=== PATIENT | male | born 1955 | race Caucasian/White ===

== ENCOUNTER 2022-06-20 15:56 | Emergency (ER) | payer OTHER, SELFPAY ==
[2022-06-20] VITALS (32 sets, daily range): BP systolic 120–156; BP diastolic 61–119; PULSE 79–108; RESP 13–26; TEMP 36.7; O2SAT 95–100
--- NOTE | ~2022-06-20 | XR_ITS ---
EXAMINATION: XR chest 2V DATE: 06/20/2022 16:50 INDICATION: Weakness TECHNIQUE: PA and lateral views of the chest are obtained. COMPARISON: 06/04/2019 FINDINGS: There are nodular opacities at the left costophrenic angle on the frontal view. No pleural effusion or pneumothorax. The cardiomediastinal silhouette is normal. There is moderate thoracic spon dylosis. There is chronic mild calcification of the pericardium. IMPRESSION: 1. Nodules projecting at the left costophrenic angle. Further evaluation with CT of the chest is phoebe mmended. Reviewed, dictated and finalized at location A. IMPRESSION: 1. Nodules projecting at the left costophrenic angle. Further evaluation with C T of the chest is recommended.
--- NOTE | ~2022-06-20 | CT_ITS ---
EXAMINATION: CTA chest PE protocol DATE: 06/20/2022 18:05 INDICATION: Hemoptysis. Nodule seen on prior radiograph. TECHNIQUE: Computed tomography (CT) pulmonary angiogram of the chest was performed with 100 mL Omnipa que-350 intravenous contrast. Additional 3D reconstructions utilizing coronal maximum intensity proje ction (MIP) were performed. Automated exposure control and iterative reconstruction technique were em ployed. The dose-length product was 408.61 mGy-cm. COMPARISON: None FINDINGS: Excellent contrast opacification of the pulmonary arteries. There is mild streak artifact from dense contrast in the superior vena cava and right atrium. Mild scattered respiratory motion artifact. Over all this does not significantly limit evaluation. No pulmonary embolism. There is diffuse bronchial w all thickening with some scattered bubbly appearing mucous within the bronchi. There are scattered bi lateral patchy groundglass opacities with peripheral and lower lung predominance which in the acute s etting are suspicious for pneumonia. There does however appear to be some associated honeycombing at the lung bases and differential would include usual interstitial pneumonia (UIP) pattern chronic inte rstitial lung disease. Alternatively the cystic change to this could be related to emphysema. No pleu ral effusion or pneumothorax. Heart size is normal. Extensive pericardial calcification without effus ion consistent with chronic pericarditis. Thoracic aorta is normal in caliber with no dissection. No pathologically enlarged thoracic lymphadenopathy. Visualized upper abdomen is unremarkable. Mild thor acic spondylosis with bridging osteophytes at multiple levels consistent with diffuse idiopathic skel etal hyperostosis (DISH). IMPRESSION: 1. No pulmonary embolism. 2. Bronchial wall thickening with scattered patchy groundglass opacities which could be related to ac alanna pneumonia superimposed over emphysema or UIP pattern chronic interstitial lung disease. Reviewed, dictated and finalized at location A. IMPRESSION: 1. No pulmonary embolism. 2. Bronchial wall thickening with scattered patchy groundglass opacities which could be related to acute pneumonia superimposed over emphysema or UIP pattern chronic interstitial lung disease.
--- NOTE | 2022-06-20 16:24 | ECG_ITS ---
Measurements Intervals Watson Rate: 101 P: 79 AR: 204 QRS: -68 QRSD: 89 T: 85 QT: 315 QTc: 409 Interpretive Statements SINUS TACHYCARDIA VENTRICULAR PREMATURE COMPLEX BORDERLINE AV CONDUCTION DELAY INCOMPLETE RIGHT BUNDLE BRANCH BLOCK LEFT ANTERIOR FASCICULAR BLOCK BORDERLINE ST-T WAVE ABNORMALITY- HIGH LATERAL ELADS BASELINE ARTIFACT- I, V3, V5-V6 ABNORMAL ECG NO PREVIOUS ECG AVAILABLE FOR COMPARISON Electronically Signed On 06-20-2022 16:51:27 CDT by Chucky Gardiner D.O.
[2022-06-20 16:32] LABS: Glucose Point of Care > 500 mg/dl (65-105)
--- NOTE | 2022-06-20 16:57 | ED.GENADULT ---
HPI - General Adult General Chief complaint: Unspecified <BHASKAR Doshi Last Filed: 06/21/22 00:08> Stated complaint: coughing up blood for 10 days <BHASKAR Doshi Last Filed: 06/21/22 00:08> Time Seen by Provider: 06/20/22 16:56 <BHASKAR Doshi Last Filed: 06/21/22 00:08> Source: patient <BHASKAR Doshi Last Filed: 06/21/22 00:08> Mode of arrival: ambulatory <BHASKAR Doshi Last Filed: 06/21/22 00:08> Limitations: no limitations <BHASKAR Doshi Last Filed: 06/21/22 00:08> History of Present Illness HPI narrative: Patient is a 67 y/o male who presents to the ED with multiple complaints. Patient is currently homeless. He reports having a recent cough, started on Doxycycline and prednisone by his PCP 10 days ago. States the cough is improved, but he is now experiencing some hemoptysis over the last 10 days. Intermittent, mild in amount, more streaking after coughing episode. Former smoker. Denies any significant shortness of breath, or chest pain, fevers, congestion, runny nose. Also reports his blood sugars have been out of control for the last several years. He is supposed to be on metformin, but has been out of this for the last week as he lost his medication. He does note polyuria and polydipsia. He does not have a way to check his sugars. Patient further reports having diffuse back, hip, knee pain. Denies any abdominal pain, nausea, vomiting, headache, dizziness, vision changes. <BHASKAR Doshi Last Filed: 06/21/22 00:08> Related Data Allergies/adverse reactions: Allergies Allergy/AdvReac Type Severity Reaction Status Date / Time No Known Allergies Allergy Verified 09/23/16 15:47 <BHASKAR Doshi Last Filed: 06/21/22 00:08> Review of Systems Review of Systems: CONSTITUTIONAL: Denies fever, chills, or sweats. EYES: Denies vision changes ENT: Reports polydipsia. Denies rhinorrhea, congestion, sore throat. CARDIOVASCULAR: Denies chest pain. RESPIRATORY: Reports cough, hemoptysis. Denies dyspnea. GASTROINTESTINAL: Denies abdominal pain, nausea, vomiting, or diarrhea. GENITOURINARY: Reports polyuria. MUSCULOSKELETAL: Reports diffuse back pain, hip pain, knee pain. NEUROLOGIC: Denies headache, numbness, or weakness. <Iva Lowery PA-C - Last Filed: 06/21/22 00:08> All systems reviewed & are unremarkable except as noted in HPI and below <Iva Lowery PA-C - Last Filed: 06/21/22 00:08> [facility] Past Medical History Medical History: Medical History (Updated 06/21/22 @ 00:00 by Zaid Cotton) COPD (chronic obstructive pulmonary disease) Diabetes mellitus <Iva Lowery PA-C - Last Filed: 06/21/22 00:08> Surgical History Surgical History: Surgical History (Updated 06/20/22 @ 18:27 by Iva Lowery PA-C) History of ankle surgery History of appendectomy History of eye surgery <Iva Lowery PA-C - Last Filed: 06/21/22 00:08> Social History Social History: Social History (Updated 06/20/22 @ 18:27 by Iva Lowery PA-C) Smoking status: Former smoker <Iva Lowery PA-C - Last Filed: 06/21/22 00:08> Exam Narrative: GENERAL: Mildly disheveled appearing, well-nourished, non-toxic, in no acute distress. HEAD: Normocephalic, atraumatic. EYES: PERRL/EOMI, conjunctivae clear bilaterally. NECK: Supple. No adenopathy, no masses. RESPIRATORY: Airway patent, respirations nonlabored. Coarse breath sounds bilaterally with rhonchi and occasional wheezing. CARDIOVASCULAR: Regular rate and rhythm without murmurs, rubs, or gallops. Peripheral pulses 2+ and equal bilaterally. ABDOMINAL: Soft, nontender, nondistended, no hepatosplenomegaly. Normoactive BS. MUSCULOSKELETAL: Moves all extremities. Strength/ROM intact without gross deformities. SKIN: Warm, dry, normal color. No rashes. NEURO: A&O X3.
[2022-06-20 17:13] LABS: Basophils Percent Auto 0.2 % (0.2-1.2); Eosinophils Absolute Auto 0.1 K/mm3 (0-0.3); Eosinophils Percent Auto 1.3 % (0-4.4); Hematocrit 41.5 % (42.0-52.0); Immature Granulocyte Absolute 0.05 K/mm3 (0.00-0.031); Immature Granulocyte Percent A 0.5 % (0-0.5); Lymphocytes Percent Auto 16.7 % (18.3-44.2); Mean Corpuscular HGB Conc 33.7 g/dl (32-36); Mean Corpuscular Hemoglobin 31.1 pg (26-34); Mean Corpuscular Volume 92.2 fl (80-100); Mean Platelet Volume 9.6 fl (7.4-10.4); Monocytes Absolute Auto 0.8 K/mm3 (0.1-0.6); Monocytes Percent Auto 7.9 % (2.6-8.5); Neutrophils Percent Auto 73.4 % (45.5-73.1); Platelet Count Result 351 k/mm3 (150-375); Red Cell Distribution Width 12.7 % (11.5-14.5); White Blood Count 9.6 K/mm3 (4.5-10.0)
[2022-06-20 17:19] LABS: Alanine Aminotransferase 43 U/L (6-50); Albumin Level 3.9 g/dL (3.5-5.1); Alkaline Phosphatase 117 U/L (38-126); Anion Gap 16 mmol/L (8-16); Aspartate Amino Transferase 28 U/L (17-59); Bilirubin,Total 0.4 mg/dL (0.2-1.3); Blood Urea Nitrogen 19 mg/dL (9-20); Calcium 8.5 mg/dL (8.4-10.2); Carbon Dioxide 20 mmol/L (22-30); Chloride 91 mmol/L (98-107); Estimated CRCL calculation 68 ml/min; Estimated Glomerular Filt Rate > 60; Glucose 722 mg/dL (65-110); Potassium 4.5 mmol/L (3.4-5.0); Sodium 127 mmol/L (137-145)
[2022-06-20] MEDS: SODIUM CHLORIDE 0.9% IV 1,000 ML 999 ML IV CONT ×2 (17:33→18:52)
[2022-06-20 17:34] LABS: Appearance Urine Clear (Clear); Bilirubin Urine Negative (Negative); Blood Urine Negative (Negative); Color Urine Yellow (Yellow); Glucose Urine UA 3+ mg/dL (Negative); Ketones Urine Negative (Negative); Leukocyte Esterase Ur Negative LEU/UL (Negative); Nitrate Urine Negative (Negative); Protein Urine Negative (Negative); Specific Grav Ur <= 1.005 (1.001-1.035); Urobilinogen Urine 0.2 mg/dL (<2.0); pH Urine 5.5 (5.0-9.0)
[2022-06-20 18:08] LABS: Add Urine Microscopic? NO
[2022-06-20 19:03] LABS: Beta-Hydroxybutyrate/Acetoacetate 0.07 mmol/L (0.02-0.27)
[2022-06-20 19:05] LABS: Hemoglobin A1C 9.2 % (<5.7)
[2022-06-20 20:38] LABS: Anion Gap 8 mmol/L (8-16); Blood Urea Nitrogen 20 mg/dL (9-20); Calcium 7.7 mg/dL (8.4-10.2); Carbon Dioxide 23 mmol/L (22-30); Chloride 100 mmol/L (98-107); Estimated CRCL calculation 83 ml/min; Estimated Glomerular Filt Rate > 60; Glucose 405 mg/dL (65-110); Sodium 131 mmol/L (137-145)
[2022-06-20] MEDS: metFORMIN HCL 500 MG TABLET PO (21:47)
== END 2022-06-20 22:08 | disposition home or self-care (01) ==
PROVIDERS: Emergency Medicine; Physician Assistant; Emergency Provider Emergency Medicine; PCP Hospitalist
DX: J18.9 Pneumonia, unspecified organism (principal); E11.65 Type 2 diabetes mellitus with hyperglycemia; Z87.891 Personal history of nicotine dependence; Z79.84 Long term (current) use of oral hypoglycemic drugs; Z59.00 Homelessness unspecified; R00.0 Tachycardia, unspecified; I49.3 Ventricular premature depolarization; I45.2 Bifascicular block
CPT/HCPCS: 31575; 36415; 71046; 71275; 80048; 80053; 81003; 82010; 82948; 83036; 85025; 93005; 96360; 96361; 99284; A9270; J7030; Q9967